=== PATIENT | female | born 1945 | race Caucasian/White ===

== ENCOUNTER → 2024-09-29 11:47 | Outpatient (REF) | payer MEDICARE, OTHER, SELFPAY | LOC: WDC 11:47 | PROVIDERS: ATTENDING PHYSICIAN Internal Medicine | DX: Z12.31 Encounter for screening mammogram for malignant neoplasm of breast (principal) | CPT/HCPCS: 77063; 77067 ==

== ENCOUNTER → 2024-10-09 10:39 | Outpatient (REF) | payer MEDICARE, OTHER, SELFPAY | LOC: WDC 10:39 | PROVIDERS: ATTENDING PHYSICIAN Internal Medicine | DX: R92.8 Other abnormal and inconclusive findings on diagnostic imaging of breast (principal) | CPT/HCPCS: 76642 ==

== ENCOUNTER → 2024-10-16 08:39 | Outpatient (REF) | payer MEDICARE, OTHER, SELFPAY | LOC: WDC 08:39 | PROVIDERS: ATTENDING PHYSICIAN Internal Medicine | DX: N63.12 Unspecified lump in the right breast, upper inner quadrant (principal) | CPT/HCPCS: 88305; 19083; 88341; 88342; 88360; A4648 ==

== ENCOUNTER → 2024-11-10 08:27 | Outpatient (REF) | payer MEDICARE, OTHER, SELFPAY | LOC: WDC 08:27 | PROVIDERS: ATTENDING PHYSICIAN Surgery | DX: C50.411 Malignant neoplasm of upper-outer quadrant of right female breast (principal) | CPT/HCPCS: 19285; A4648 ==

== ENCOUNTER → 2024-11-11 07:43 | Outpatient (REF) | payer MEDICARE, OTHER, SELFPAY | LOC: WDC 07:43 | PROVIDERS: ATTENDING PHYSICIAN Surgery | DX: C50.411 Malignant neoplasm of upper-outer quadrant of right female breast (principal) | CPT/HCPCS: 88305; 88307; 76098 ==

== ENCOUNTER → 2024-12-11 14:14 | Outpatient (REF) | payer MEDICARE, OTHER, SELFPAY | LOC: RAD 14:14 | PROVIDERS: ATTENDING PHYSICIAN Surgery; FAMILY PHYSICIAN Internal Medicine; OTHER PHYSICIAN Internal Medicine Hematology & Oncology; REFERRING PHYSICIAN Internal Medicine Cardiovascular Disease | DX: Z85.3 Personal history of malignant neoplasm of breast (principal); Z79.83 Long term (current) use of bisphosphonates; Z13.820 Encounter for screening for osteoporosis | CPT/HCPCS: 77080 ==

== ENCOUNTER → 2025-10-02 10:44 | Outpatient (REF) | payer MEDICARE, OTHER, SELFPAY | LOC: WDC 10:44 | PROVIDERS: ATTENDING PHYSICIAN Surgery; FAMILY PHYSICIAN Internal Medicine | DX: Z12.31 Encounter for screening mammogram for malignant neoplasm of breast (principal) | CPT/HCPCS: 77063; 77067 ==